=== PATIENT | male | born 1960 | race Caucasian/White ===

== ENCOUNTER 2021-02-10 04:25 | Emergency (ER) | payer SELFPAY ==
--- NOTE | ~2021-02-10 | CT_ITS ---
EXAMINATION: CT ABDOMEN AND PELVIS WITH CONTRAST CLINICAL INFORMATION: Left lower quadrant pain COMPARISON: None TECHNIQUE: Multidetector volumetric images were obtained from the superior aspect of the liver through the pubic symphysis following administration 85 mL of Omnipaque 350 intravenous contrast. Sagittal and coronal reformatted images were obtained on the technologist's workstation. Oral contrast: No This CT examination was performed using dose optimization techniques as appropriate, variously including the following: *Automated exposure control *Adjustment of mA and/or kV according to patient size (this includes techniques or standardized protocols for targeted exams where dose is matched to indication/reason for exam; i.e. extremities or head) *Use of iterative reconstruction technique DLP: 721 mGy-cm FINDINGS: LUNG BASES: The visualized lung bases are unremarkable. Coronary calcifications. LIVER, GALLBLADDER, AND BILIARY TREE: Liver normal in size, contour and morphology. There is a 4.4 cm ill-defined hypodensity within hepatic segment 7 with suggestion of discontinuous peripheral nodular enhancement matching that of blood pool, most compatible with a hemangioma. A similar-appearing smaller lesion is present within hepatic segment 6 posteriorly measuring 1.6 cm. There are 3 thinly septate cysts within the right lobe of the liver, largest measuring 2.1 cm. No intra or extrahepatic biliary dilatation. Gallbladder unremarkable. PANCREAS: Unremarkable. SPLEEN: Unremarkable. ADRENAL GLANDS: Unremarkable. KIDNEYS AND URETERS: There is mild left hydroureteronephrosis, diminished/delayed enhancement and perinephric stranding upstream from a 2 mm calculus within the distal left ureter located 3 cm proximal to the ureterovesical junction. No additional urinary calculi. Right kidney unremarkable. BLADDER: Unremarkable. GASTROINTESTINAL TRACT: Scattered left colonic diverticula. No evidence of diverticulitis. Normal appendix. Stomach and small bowel unremarkable. ABDOMINAL WALL: No significant hernia is appreciated. LYMPH NODES: Normal. VASCULAR: Unremarkable. PELVIC VISCERA: Mild prostatomegaly. Seminal vesicles unremarkable. OSSEOUS STRUCTURES: No acute or suspicious osseous abnormalities. Severe bilateral hip arthrosis with [id number] contact. Degenerative changes present throughout the spine. CT/CT abdomen pelvis w con IMPRESSION: * There is a 2 mm calculus within the distal LEFT ureter, 3 cm proximal from the ureterovesical junction associated with mild obstructive uropathy as described. * Incidental 4.4 cm lesion within hepatic segment 7 most compatible with a hemangioma. There is an additional 1.6 cm ill-defined lesion within hepatic segment 6 which is less specific due to its small size, however also likely a hemangioma. Recommend right upper quadrant ultrasound or dynamic MRI of the liver to confirm. * There are 3 thinly septate benign hepatic cysts. * Scattered left colonic diverticula without evidence of diverticulitis. * Severe bilateral hip arthrosis with [id number] contact.
[2021-02-10 04:29] VITALS: BP 145/85; PULSE 75; RESP 18; TEMP 36.7; O2SAT 100; BMI 29.8
--- NOTE | 2021-02-10 04:38 | ED_ITS ---
HPI - Abdominal Pain General Chief Complaint: Abdominal Pain Stated Complaint: ABD PAIN Time Seen by Provider: 02/10/21 04:38 Source: patient Mode of arrival: ambulatory History of Present Illness HPI narrative: This is a 60-year-old male without significant past medical history who presents with onset and worsening left-sided abdominal/flank pain. Patient states that he has had nausea and vomiting and that this all started at approximately 11:00 p.m. last night. He denies any fevers but is having chills. Otherwise, he denies any diarrhea, or urinary pain/burning/frequency. Related Data Previous Rx's Medication Instructions Recorded ondansetron HCl [Zofran] 4 mg PO Q8H PRN #7 tab 02/10/21 prednisone 20 mg PO DAILY 4 Days #4 tab 02/10/21 tamsulosin [Flomax] 0.4 mg PO BEDTIME 4 Days #4 cap 02/10/21 Allergies Allergy/AdvReac Type Severity Reaction Status Date / Time No Known Allergies Allergy Verified 02/10/21 04:33 Review of Systems Review of Systems Pertinent positives and negatives as stated in HPI 10 point review of systems is otherwise negative. Physical Exam Vital Signs: Vital Signs: Last Vital Signs Temp 98.1 F 02/10/21 04:29 Pulse 66 02/10/21 05:14 Resp 20 02/10/21 05:14 BP 146/89 H 02/10/21 05:14 Pulse Ox 96 02/10/21 05:14 Body Mass Index 29.8 VITAL SIGNS: Reviewed. GENERAL: Well developed, well nourished, in no acute distress. HEAD: Normocephalic/atraumatic, EYES: PERRLA, EOMI NOSE: Nares patent bilateral OROPHARYNX: no oral lesions noted, posterior pharynx clear NECK: Supple, no adenopathy LUNGS: Normal breath sounds. SpO2<96> CARDIOVASCULAR: Regular rate and rhythm without noted murmurs ABDOMEN: Soft, tenderness to palpation left upper quadrant/flank pain, non- distended with bowel sounds. MUSCULOSKELETAL: No tenderness, deformities, or effusions noted on gross inspection. EXTREMITIES: No cyanosis, clubbing or edema. SKIN: Inspection of the skin reveals no rashes, ulcerations, jaundice, pallor, or petechiae. NEUROLOGIC: Alert and oriented x 4. Strength and sensation to light touch were grossly intact x 4. Course Course Course Narrative: This is a 60-year-old male with history and clinical presentation suggestive possible pancreatitis, gastritis, diverticulitis. On review of all investigations patient is noted to have ureterolithiasis and was provided with Toradol as well as an initial dose of Flomax. This case was discussed with Urology who will see the patient in the office. All results and findings were discussed with the patient bedside and he was discharged in stable condition. MDM - Abdominal Pain Lab Data Result diagrams: 02/10/21 04:42 02/10/21 04:42 Labs: Lab Results 02/10/21 02/10/21 02/10/21 Range/Units 04:42 04:42 04:42 WBC 12.0 H (4.8-10.8) X10*3/uL RBC 4.55 L (4.60-5.80) X10*6/uL Hgb 14.4 (14.0-18.0) g/dl Hct 40.8 L (42-52) % MCV 89.7 (80-98) fL MCH 31.6 (27.0-33.0) pg MCHC 35.3 (31.0-36.0) g/dl RDW 11.8 (11.0-16.0) % Plt Count 230 (160-400) X10*3/uL MPV 9.1 L (9.4-12.4) fL Immature Gran % (Auto) 0.3 (0.0-0.4) % Neut % (Auto) 94.2 H (45-73) % Lymph % (Auto) 2.9 L (20-40) % Schley % (Auto) 2.3 (2-11) % Eos % (Auto) 0.0 (0-4) % Baso % (Auto) 0.3 (0-2) % Lymph # (Auto) 0.4 L (1.2-4.9) X10*3/uL Schley # (Auto) 0.3 (0.1-1.2) X10*3/uL Eos # (Auto) 0.0 (0.0-0.4) X10*3/uL Baso # (Auto) 0.0 (0.0-0.2) X10*3/uL Abs Immat Gran (auto) 0.04 H (0.00-0.03) X10*3/uL Absolute Neuts (auto) 11.3 H (2.0-8.3) X10*3/uL Absolute Nucleated RBC 0.000 (0.0-0.012) X10*3/uL Nucleated RBC % (auto) 0.0 (0.0-0.2) /100WBC Smear Tech's Comments VERIFIED Hold Blue Top SEE NOTE Sodium 141 (135-145) mmol/L Potassium 4.2 (3.3-5.1) mmol/L Chloride 106 (96-108) mmol/L Carbon Dioxide 23 (22-29) mmol/L Anion Gap 16 (12-20) BUN 21 H (9-16) mg/dL Creatinine 1.19 (0.5-1.4) mg/dL Estim Creat Clear Calc 78.7 Estimated GFR > 60 Random Glucose 137 H (60-115) mg/dL Calcium 9.6 (8.4-10.2) mg/dL Total Bilirubin 0.8 (0.0-1.0) mg/dL AST 18 (5-37) U/L ALT 17 (0-40) U/L Alkaline Phosphatase 62 (39-117) U/L Total Protein 7.7 (6.5-8.0) g/dL Albumin 4.9 (3.5-5.0) g/dL Lipase 19 (8-78) U/L Ethyl Alcohol mg/dL 02/10/21 Range/Units 04:42 WBC (4.8-10.8) X10*3/uL RBC (4.60-5.80) X10*6/uL Hgb (14.0-18.0) g/dl Hct (42-52) % MCV (80-98) fL MCH (27.0-33.0) pg MCHC (31.0-36.0) g/dl RDW (11.0-16.0) % Plt Count (160-400) X10*3/uL MPV (9.4-12.4) fL Immature Gran % (Auto) (0.0-0.4) % Neut % (Auto) (45-73) % Lymph % (Auto) (20-40) % Schley % (Auto) (2-11) % Eos % (Auto) (0-4) % Baso % (Auto) (0-2) % Lymph # (Auto) (1.2-4.9) X10*3/uL Schley # (Auto) (0.1-1.2) X10*3/uL Eos # (Auto) (0.0-0.4) X10*3/uL Baso # (Auto) (0.0-0.2) X10*3/uL Abs Immat Gran (auto) (0.00-0.03) X10*3/uL Absolute Neuts (auto) (2.0-8.3) X10*3/uL Absolute Nucleated RBC (0.0-0.012) X10*3/uL Nucleated RBC % (auto) (0.0-0.2) /100WBC Smear Tech's Comments Hold Blue Top Sodium (135-145) mmol/L Potassium (3.3-5.1) mmol/L Chloride (96-108) mmol/L Carbon Dioxide (22-29) mmol/L Anion Gap (12-20) BUN (9-16) mg/dL Creatinine (0.5-1.4) mg/dL Estim Creat Clear Calc Estimated GFR Random Glucose (60-115) mg/dL Calcium (8.4-10.2) mg/dL Total Bilirubin (0.0-1.0) mg/dL AST (5-37) U/L ALT (0-40) U/L Alkaline Phosphatase (39-117) U/L Total Protein (6.5-8.0) g/dL Albumin (3.5-5.0) g/dL Lipase (8-78) U/L Ethyl Alcohol < 10 mg/dL ECG Data Attestation: I personally reviewed and interpreted this ECG as follows: Prior ECG tracings: not available for review Interpretation: Normal sinus rhythm, HR-69, no evidence of acute ischemia, TN/QRS/QTC are within normal limits. Discharge Plan Discharge Clinical Impression: Ureterolithiasis Patient Disposition: Home, Self-Care Instructions: Ureteral Stones (ED) Additional Instructions: Follow-up with your primary care provider in the next 2-3 days for re-evaluation . Increase fluid hydration especially with water. Tylenol 1000 mg, orally, every 6 hours as needed for pain control. Do not exceed 4000 mg within 24 hours. Ibuprofen 400 mg, orally with milk or food, every 6 hours as needed for pain control. You have been provided with a referral to see Urology please call their office on Saturday morning. Prescriptions: New tamsulosin [Flomax] 0.4 mg capsule 0.4 mg PO BEDTIME 4 Days Qty: 4 RF: 0 prednisone 20 mg tablet 20 mg PO DAILY 4 Days Qty: 4 RF: 0 ondansetron HCl [Zofran] 4 mg tablet 4 mg PO Q8H PRN (Reason: nausea and vomiting) Qty: 7 RF: 0 Referrals: Quentin Olivera MD [Physician] - 2 days (Re-evaluation after patient noted to have ureterolithiasis in the emergency department .) Physician,Flavio [Primary Care Provider] - 2 days [facility] Past Medical History Source: nursing notes reviewed Surgical History H/O Achilles tendon repair Social History Social History Advance Directives: No
[2021-02-10 04:49] LABS: Basophils Percent Auto 0.3 % (0-2); Hematocrit 40.8 % (42-52); Hemoglobin 14.4 g/dl (14.0-18.0); Imm Gran Abs Auto 0.04 X10*3/uL (0.00-0.03); Imm Gran Pct Auto 0.3 % (0.0-0.4); Lymphocytes Absolute Auto 0.4 X10*3/uL (1.2-4.9); Lymphocytes Percent Auto 2.9 % (20-40); MANUAL DIFF FLAG SCAN; Mean Corpuscular HGB Conc 35.3 g/dl (31.0-36.0); Mean Corpuscular Hemoglobin 31.6 pg (27.0-33.0); Mean Corpuscular Volume 89.7 fL (80-98); Mean Platelet Volume 9.1 fL (9.4-12.4); Monocytes Absolute Auto 0.3 X10*3/uL (0.1-1.2); Monocytes Percent Auto 2.3 % (2-11); Neutrophils Absolute Auto 11.3 X10*3/uL (2.0-8.3); Neutrophils Percent Auto 94.2 % (45-73); Platelet Count 230 X10*3/uL (160-400); Red Blood Count 4.55 X10*6/uL (4.60-5.80); Red Cell Distribution Width 11.8 % (11.0-16.0); SCAN SMEAR FLAG 1
[2021-02-10] MEDS: ondansetron HCL 4 MG/2 ML VIAL IVPUSH (05:05)
[2021-02-10] MEDS: 0.9 % Sodium Chloride 1,000 ML 999 ML IV (05:06)
--- NOTE | 2021-02-10 05:09 | ECG_ITS ---
Test Reason : ABD PAIN Blood Pressure : / mmHG Vent. Rate : 069 BPM Atrial Rate : 069 BPM P-R Int : 162 ms QRS Dur : 078 ms QT Int : 408 ms P-R-T Axes : 042 012 027 degrees QTc Int : 437 ms Normal sinus rhythm Normal ECG No previous ECGs available Referred By: Crista Mills Electronically Signed By:EMA ALFORD
[2021-02-10 05:14] VITALS: BP 146/89; PULSE 66; RESP 20; O2SAT 96
[2021-02-10 05:20] LABS: Alanine Aminotransferase 17 U/L (0-40); Albumin Level 4.9 g/dL (3.5-5.0); Alkaline Phosphatase 62 U/L (39-117); Anion Gap 16 (12-20); Aspartate Amino Transferase 18 U/L (5-37); Bilirubin Total 0.8 mg/dL (0.0-1.0); Blood Urea Nitrogen 21 mg/dL (9-16); Calcium 9.6 mg/dL (8.4-10.2); Carbon Dioxide 23 mmol/L (22-29); Chloride 106 mmol/L (96-108); Creatinine Clr Calc Pharmacy 78.7; Estimated Glomerular Filt Rate > 60; Glucose Random 137 mg/dL (60-115); Lipase 19 U/L (8-78); Potassium 4.2 mmol/L (3.3-5.1); Sodium 141 mmol/L (135-145); Total Protein 7.7 g/dL (6.5-8.0)
[2021-02-10 05:22] LABS: SLIDE REVIEW VERIFIED
--- NOTE | 2021-02-10 05:31 | PC.NURSE ---
Patient away for imaging. Medicated as ordered for nausea/vomiting with Zofran and Normal Saline. Will continue to monitor.
[2021-02-10] MEDS: iohexoL 350 MG/ML 100 ML INFUS..BTL IV (05:43)
[2021-02-10 05:46] LABS: Ethanol < 10 mg/dL
[2021-02-10] MEDS: Tamsulosin HCL 0.4 MG CAPSULE PO (06:51)
[2021-02-10] MEDS: Ketorolac Tromethamine 15 MG/ML VIAL IVPUSH (06:51)
[2021-02-10 07:14] LABS: Glucose Urine UA NEG (NEG); Leukocyte Esterase Urine NEG (NEG); Nitrite Urine NEG (NEG); Urine Blood 1+ (NEG); Urine Ketones >=80 MG/DL (NEG); Urine Protein NEG (NEG-TRACE)
[2021-02-10 07:16] LABS: Appearance Urine CLEAR; Color Urine YELLOW
[2021-02-10 07:26] LABS: WBC Urine 0 /HPF (0-4)
[2021-02-10 07:28] VITALS: RESP 16
== END 2021-02-10 08:13 | disposition home or self-care (01) ==
PROVIDERS: Emergency Provider Student in an Organized Health Care Education/Training Program
DX: N20.2 Calculus of kidney with calculus of ureter (principal); R11.2 Nausea with vomiting, unspecified; R10.12 Left upper quadrant pain; R93.5 Abnormal findings on diagnostic imaging of other abdominal regions, including retroperitoneum; K76.9 Liver disease, unspecified
CPT/HCPCS: 36415; 74177; 80053; 80320; 81001; 83690; 85025; 93005; 96361; 96374; 96375; 99284; J1885; J2405; Q9967

== ENCOUNTER 2025-09-03 00:54 | Emergency (ER) | payer MEDICARE, SELFPAY ==
--- NOTE | ~2025-09-03 | CT_ITS ---
CLINICAL HISTORY: left flank pain CT abdomen and pelvis without contrast Comparison: None provided Findings: No consolidation or effusion. Indeterminate 4.4 x 4.1 cm mass in segment 7 of the right hepatic lobe. Unremarkable gallbladder. Unremarkable spleen, pancreas, and bilateral adrenal glands. There is an obstructing 0.3 cm stone in the proximal left ureter with resultant hydroureteronephrosis and perinephric fat stranding. An additional smaller stone is seen in the left upper pole of the kidney. A punctate nonobstructing stone is seen in the lower pole of the right kidney. No hydronephrosis or hydroureter on the right. No bowel obstruction, pneumoperitoneum, or pneumatosis. Colonic diverticulosis without evidence of diverticulitis. Normal appendix. Urinary bladder is smooth walled and contains multiple dependent stones. Prostatomegaly. Seminal vesicles are unremarkable. Severe osteoarthritis of both hips. No acute fractures or dislocations. Osteopenia. IMPRESSION: Obstructing 0.3 cm stone in the proximal left ureter with hydroureteronephrosis and perinephric fat stranding. Multiple urinary bladder stones. Indeterminate 4.4 cm mass in segment 7 of the right hepatic lobe. Advise nonemergent multiphase CT of the abdomen and pelvis or MRI of the abdomen with and without contrast provided no contraindications. This document has been electronically signed by: Oliver Horna MD on 09/03/2025 03:11:31
[2025-09-03 01:01] VITALS: BP 164/86; PULSE 68; RESP 16; TEMP 36.5; O2SAT 100; BMI 26.7
--- NOTE | 2025-09-03 01:06 | ED_ITS ---
HPI - Male Genitourinary General Chief complaint: Urogenital-Male Stated complaint: kidney stones Time Seen by Provider: 09/03/25 01:06 Source: patient, RN notes reviewed and old records reviewed Mode of arrival: ambulatory Limitations: no limitations History of Present Illness ED Provider: Kameron CARPENTER Narrative: 65-year-old male presents for evaluation of left flank pain. He reports that his pain started about 12-14 hours ago, in the late morning. He had a sudden onset of left flank pain. He has associated nausea and vomiting pain His pain worsened a few hours ago Has a history kidney stone about 4 years ago and reports that this feels very similar pain Denies any fevers, chills pain Denies any difficulty urinating Related Data Previous Rx's ?Medication ?Instructions ?Recorded ondansetron HCl 4 mg tablet 4 mg PO Q8H PRN nausea and 02/10/21 (Zofran) vomiting #7 tabs prednisone 20 mg tablet 20 mg PO DAILY 4 days #4 tab s 02/10/21 tamsulosin 0.4 mg capsule (Flomax) 0.4 mg PO BEDTIME 4 days #4 caps 02/10/21 ibuprofen 600 mg tablet 600 mg PO Q6H PRN pain #20 t abs 09/03/25 ondansetron 4 mg disintegrating 4 mg PO Q8H PRN nausea and 09/03/25 tablet vomiting #15 tabs oxycodone 5 mg tablet 5 mg PO Q6H PRN pain #20 tab s 09/03/25 phenazopyridine 200 mg tablet 200 mg PO TID PRN pain 3 days #10 09/03/25 tabs tamsulosin 0.4 mg capsule (Flomax) 0.4 mg PO DAILY #7 caps 09/03/25 Allergies Allergy/AdvReac Type Severity Reaction Status Date / Time No Known Allergies Allergy Verified 09/03/25 01:04 Review of Systems 2 Constitutional: Constitutional: Denies body ache(s), Denies chills, Denies fever(s) and Denies headache(s) Eyes: Eyes: Denies blurry vision ENT: Denies vertigo, Denies dizziness and Denies headache(s) Cardiovascular: Cardiovascular: Denies chest pain and Denies dyspnea on exertion Respiratory: Respiratory: Denies cough and Denies dyspnea on exertion Gastrointestinal: Gastrointestinal: Reports abdominal pain, Reports nausea and Reports vomiting Genitourinary: Genitourinary: Denies dysuria and Reports flank pain Musculoskeletal: Musculoskeletal: Reports back pain Integumentary/Breasts: Skin/Breast: Denies rash Neurologic: Denies vertigo, Denies dizziness and Denies headache(s) REPLACED BY [facility] Past Medical History Surgical History H/O Achilles tendon repair Social History Social History Smoked in Last 30 Days: No Use of substances other than those prescribed or required for medical reasons: Yes Substance Use Type: Marijuana Advance Directives: No Advance Directives Information Provided: Yes Do you have a plan to hurt others: No Plan Physical Exam 2 Vital Signs: Vital Signs: Last Vital Signs Temp 97.7 F 09/03/25 01:01 Pulse 60 09/03/25 02:15 Resp 20 09/03/25 03:59 BP 166/90 H 09/03/25 02:15 Pulse Ox 98 09/03/25 02:15 O2 Del Method Room Air 09/03/25 02:15 BMI result Body Mass Index 26.7 Const: Other: The patient appears quite uncomfortable but is nontoxic appearing General: healthy appearing, alert, awake and diaphoretic Nutritional Appearance: well nourished Orientation/consciousness: patient oriented x3 HEENT: Head: Yes normocephalic and Yes atraumatic Eyes: Eyelids: Yes eyelids normal Conjunctivae: conjunctivae normal S clerae: sclerae normal Corneas: corneas normal Pupils: Equal, round and reactive pupils present EOM: EOMs intact bilaterally Neck: Neck: Yes full ROM Resp: Effort & Inspection: normal respiratory effort, able to speak in complete sentences and not labored Cardio: Rate: regular rate Rhythm: regular rhythm GI: Inspection: No distended Palpation (GI): Soft to palpation, not firm, no guarding and not rigid Skin: General skin exam: no rashes or lesions noted and elasticity normal Neuro: General: patient oriented x3 Cranial nerves: Yes Equal, round and reactive pupils present and Yes Bilaterally intact EOM present Cognition (Neuro): normal cognition Course Reevaluation(s) Reevaluation #1: Fahad London PA-C have accepted care of the patient and signed out pending imaging and final disposition CT abdomen and pelvis:MPRESSION: Obstructing 0.3 cm stone in the proximal left ureter with hydroureteronephrosis and perinephric fat stranding. Multiple urinary bladder stones. Indeterminate 4.4 cm mass in segment 7 of the right hepatic lobe. Advise nonemergent multiphase CT of the abdomen and pelvis or MRI of the abdomen with and without contrast provided no contraindications. The hepatic lesion is old it has been present since 2020 no change, I will be sure to make the patient aware, he has aware Urine resulting, passing hematuria, it is not infected, I am calling back Radiology to see if they can give measurements in regard to the multiple bladder stones. The patient may require admission. Dependent upon the size of the stones. He may not be able to pass them. Consultations Consultation #1: per real radiology...... Oliver Horan MD..... The stones or fragments when compared to the obstructing stone in the proximal ureter, they likely are kidney stone in origin, clearly they will pass. Time: 04:45 Medications Administered Discontinued Medications Generic Name Dose Route Start Last Admin Trade Name Freq PRN Reason Stop Dose Admin Sodium Chloride 1,000 mls @ 999 mls/hr 09/03/25 01:15 09/03/25 02:15 Ns IV 09/03/25 02:15 Infused .Q1H1M LEONEL Infusion Ketorolac Tromethamine 30 mg 09/03/25 01:14 09/03/25 01:23 Ketorolac Tromethamine 30 Mg/Ml Vial IVPUSH 09/03/25 01:15 30 mg ONCE ONE Administration Morphine Sulfate 4 mg 09/03/25 01:56 09/03/25 02:00 Morphine Sulfate 4 Mg/Ml Cartridge IVPUSH 09/03/25 01:57 4 mg ONCE ONE Administration Protocol Morphine Sulfate 4 mg 09/03/25 03:54 09/03/25 03:59 Morphine Sulfate 4 Mg/Ml Cartridge IVPUSH 09/03/25 03:55 4 mg ONCE ONE Administration Protocol Ondansetron HCl 4 mg 09/03/25 01:08 09/03/25 01:14 Ondansetron Hcl 4 Mg/2 Ml Vial IVPUSH 09/03/25 01:09 4 mg ONCE ONE Administration Ondansetron HCl 4 mg 09/03/25 03:54 09/03/25 03:59 Ondansetron Hcl 4 Mg/2 Ml Vial IVPUSH 09/03/25 03:55 4 mg ONCE ONE Administration Tamsulosin HCl 0.4 mg 09/03/25 01:08 09/03/25 04:29 Tamsulosin Hcl 0.4 Mg Capsule PO 09/03/25 01:09 0.4 mg ONCE ONE Administration Medical Decision Making Medical Decision Making [facility] Narrative: 65-year-old male presents for evaluation of a sudden onset of left flank pain. His pain is colicky in nature in the left flank radiating to his left lower abdomen. He has a history kidney stones and his presentation is concerning for acute obstructive uropathy. He appears uncomfortable but nontoxic. He is afebrile. Plan for basic labs, urinalysis in his dry CT scan of the pelvis to evaluate for obstructive uropathy. He was medicated with IV fluids, Zofran, Toradol Differential Diagnosis Differential Diagnoses: The differential diagnosis associated with the presentation includes Obstructive uropathy Muscle strain Pyelonephritis UTI Constipation Lab Data 09/03/25 02:10 09/03/25 02:10 Labs: Lab Results 09/03/25 09/03/25 Range/Units 02:10 03:48 WBC 10.2 (4.8-10.8) X10*3/uL RBC 4.20 L (4.60-5.80) X10*6/uL Hgb 12.9 L (14.0-18.0) g/dl Hct 37.2 L (42.0-52.0) % MCV 88.6 (80.0-98.0) fL MCH 30.7 (27.0-33.0) pg MCHC 34.7 (31.0-36.0) g/dl RDW 12.2 (11.0-16.0) % Plt Count 188 (160-400) X10*3/uL MPV 9.1 L (9.4-12.4) fL Immature Gran % (Auto) 0.3 (0.0-0.4) % Neut % (Auto) 87.9 H (45-73) % Lymph % (Auto) 6.6 L (20-40) % Nuckolls % (Auto) 4.6 (2-11) % Eos % (Auto) 0.1 (0-4) % Baso % (Auto) 0.5 (0-2) % Lymph # (Auto) 0.7 L (1.2-4.9) X10*3/uL [place]uckolls # (Auto) 0.5 (0.1-1.2) X10*3/uL Eos # (Auto) 0.0 (0.0-0.4) X10*3/uL Baso # (Auto) 0.1 (0.0-0.2) X10*3/uL Abs Immat Gran (auto) 0.03 (0.00-0.03) X10*3/uL Absolute Neuts (auto) 8.9 H (2.0-8.3) x10*3/uL Absolute Nucleated RBC 0.000 (0.0-0.012) X10*3/uL Nucleated RBC % (auto) 0.0 (0.0-0.2) /100WBC Sodium 142 (135-145) mmol/L Potassium 3.4 (3.3-5.1) mmol/L Chloride 109 H (96-108) mmol/L Carbon Dioxide 21 L (22-29) mmol/L Anion Gap 15 (12-20) BUN 16 (9-16) mg/dL Creatinine 0.77 (0.5-1.4) mg/dL Estim Creat Clear Calc 102.1 Estimated GFR > 60 Random Glucose 140 H (60-115) mg/dL Calcium 8.7 D (8.4-10.2) mg/dL Urine Color Straw Urine Appearance Cloudy Urine pH 7.0 (5.0-9.0) Ur Specific [place] 1.020 (1.005-1.025) Urine Protein 30 (1+) H (Neg-Trace) mg/dL Urine Glucose (UA) 100 H (Negative) mg/dL Urine Ketones 40 (Negative) mg/dL Urine Blood Large (3+) H (Negative) Urine Nitrite Negative (Negative) Ur Leukocyte Esterase Trace H (Negative) Urine RBC >20 H (0-2) /HPF Urine WBC 0-5 (0-5) /HPF Ur Squamous Epith Cells 0-2 (0-2) /HPF Urine Bacteria None Seen (None Seen) Hyaline Casts 0-2 (0-2) /LPF Discharge Plan Discharge Clinical Impression: Calculus of proximal left ureter, Bladder stones Patient Disposition: Home, Self-Care Instructions: Renal Colic (ED), How to Strain Your Urine (ED), Bladder Stones (ED) Additional Instructions: You are passing multiple stones, there are several fragments in the bladder, you have 1 stone that measures 0.3 cm that has in the ureter on the left. See home care instructions. Be sure to consume adequate volumes of water, 96 oz a day. Uses Zofran as needed for nausea. Take the ibuprofen , this is an anti- inflammatory, take it with food, for pain. Take the Pyridium, this is specific for bladder spasm, it will cause your urine to become fluorescent orange, it will resolve. Use the oxycodone as needed for further pain, this medication may be constipating, take [id number] Colace, this is a stool softener, to prevent constipation. Lastly, take the Flomax as directed for a week, this will help to induce urine flow to help you passed the stones. I am providing you with a contact for Urology, call to schedule an appointment. Prescriptions: New tamsulosin [Flomax] 0.4 mg capsule 0.4 mg PO DAILY Qty: 7 0RF ondansetron 4 mg tablet,disintegrating 4 mg PO Q8H PRN (Reason: nausea and vomiting) Qty: 15 0RF ibuprofen 600 mg tablet 600 mg PO Q6H PRN (Reason: pain) Qty: 20 0RF oxycodone 5 mg tablet 5 mg PO Q6H PRN (Reason: pain) Qty: 20 0RF Rx Instructions: Partial Fill upon patient request. phenazopyridine 200 mg tablet 200 mg PO TID PRN (Reason: pain) 3 Days Qty: 10 0RF No Action tamsulosin [Flomax] 0.4 mg capsule 0.4 mg PO BEDTIME 4 Days Qty: 4 0RF prednisone 20 mg tablet 20 mg PO DAILY 4 Days Qty: 4 0RF ondansetron HCl [Zofran] 4 mg tablet 4 mg PO Q8H PRN (Reason: nausea and vomiting) Qty: 7 0RF Referrals: Alex Holman MD [Physician, Urology] Referral Note: renal colic, multiple stones, bladder stones Print Language: Occitan
--- OUTSIDE RECORDS SUMMARY | 2025-09-03 01:55 | XMS_ITS ---
Author Name [facility] Organization Unknown Care Team Organization Name Specialty Phone Email Start Date End Da te [facility] Termed, PROVIDER Primary Care 09/03/202306/04
[2025-09-03 02:00] VITALS: RESP 20
[2025-09-03 02:15] VITALS: BP 166/90; PULSE 60; RESP 18; O2SAT 98
[2025-09-03 02:29] LABS: Hematocrit 37.2 % (42.0-52.0); Hemoglobin 12.9 g/dl (14.0-18.0); Imm Gran Abs Auto 0.03 X10*3/uL (0.00-0.03); Imm Gran Pct Auto 0.3 % (0.0-0.4); Lymphocytes Absolute Auto 0.7 X10*3/uL (1.2-4.9); MANUAL DIFF FLAG NO; Mean Corpuscular HGB Conc 34.7 g/dl (31.0-36.0); Mean Corpuscular Hemoglobin 30.7 pg (27.0-33.0); Mean Corpuscular Volume 88.6 fL (80.0-98.0); NRBC Abs Auto 0.000 X10*3/uL (0.0-0.012); NRBC Pct Auto 0.0 /100WBC (0.0-0.2); Platelet Count 188 X10*3/uL (160-400); Red Blood Count 4.20 X10*6/uL (4.60-5.80); White Blood Count 10.2 X10*3/uL (4.8-10.8)
[2025-09-03 02:40] LABS: Anion Gap 15 (12-20); Blood Urea Nitrogen 16 mg/dL (9-16); Calcium 8.7 mg/dL (8.4-10.2); Carbon Dioxide 21 mmol/L (22-29); Chloride 109 mmol/L (96-108); Creatinine Clr Calc Pharmacy 102.1; Estimated Glomerular Filt Rate > 60; Potassium 3.4 mmol/L (3.3-5.1); Sodium 142 mmol/L (135-145)
--- NOTE | 2025-09-03 03:54 | PC.NURSE ---
pt was too nauseous and actively throwing up to take the tamsulosin that was ordered. Pt also refused to take anything orally due to him throwing up/nausea. CRISTHIAN Park informed RN to give to pt after he is medicated for pain and nausea.
[2025-09-03 03:57] LABS: Appearance Urine Cloudy; Glucose Urine UA 100 mg/dL (Negative); PH 7.0 (5.0-9.0); Specific Gravity - Urine 1.020 (1.005-1.025); UMIC TRIGGER UACC YES
[2025-09-03 03:59] VITALS: RESP 20
[2025-09-03 05:34] VITALS: BP 147/81; PULSE 73; RESP 16; TEMP 36.8; O2SAT 97
[2025-09-03 05:46] VITALS: BP 147/81; PULSE 73; RESP 16; TEMP 36.8; O2SAT 97
== END 2025-09-03 06:06 | disposition home or self-care (01) ==
PROVIDERS: Physician Assistant; Emergency Provider Student in an Organized Health Care Education/Training Program
DX: N20.1 Calculus of ureter (principal); N21.0 Calculus in bladder; R10.A0 Flank pain, unspecified side; R11.2 Nausea with vomiting, unspecified
CPT/HCPCS: 36415; 74176; 80048; 81001; 85025; 96361; 96374; 96375; 96376; 99284; J1885; J2270; J2405

== ENCOUNTER → 2025-09-03 01:15 | Outpatient (BNV) | payer OTHER, MEDICARE, SELFPAY | PROVIDERS: Emergency Provider Student in an Organized Health Care Education/Training Program; Visit Provider Student in an Organized Health Care Education/Training Program | DX: N13.2 Hydronephrosis with renal and ureteral calculous obstruction (principal); N21.0 Calculus in bladder; R16.0 Hepatomegaly, not elsewhere classified | CPT/HCPCS: 74176 ==

== ENCOUNTER 2025-10-07 12:05 | Outpatient (AMB) | payer MEDICARE, SELFPAY ==
--- NOTE | 2025-10-07 12:42 | A.OFFVIS_ITS ---
Intake Visit Reasons: kidney stones SET UA Intake Note: New Patient is present for Kidney Stones Urology Rx:none Blood Thinners: none NKDA Imaging completed: Abd/Pelvis CT 09/03/25 Smoker : yes Hand Clipper Required: No Accompanied by: Self / Same As Patient Allergies No Known Allergies Allergy (Verified 10/07/25 12:44) HPI Comments Details: Ortiz is a pleasant male. He has no primary care. He is seen for the following urologic conditions - nephrolithiasis - prostatomegaly - liver lesion Recent stone passage after emergency room visit No prior stones CT shows left proximal ureteric stone, stones within bladder with prostatomegaly. In addition has liver lesion Does not currently have PCP Plan for liver imaging Check PSA Start dutasteride for prostatomegaly and incomplete bladder emptying Nephrolithiasis Reason presentation to emergency room CT - obstructing 0.3 cm stone in the proximal left ureter with resultant hydroureteronephrosis and perinephric fat stranding. An additional smaller stone is seen in the left upper pole of the kidney PFSH Surgical History H/O Achilles tendon repair Social History Substance Use Type: Marijuana Review of Systems Const Denies chills and Denies fever(s) Card Reports no additional complaints and Denies syncope Resp Denies cough GI Denies abdominal pain and Denies heartburn Reports as per HPI and Denies change in libido Neuro Denies syncope Psych Denies change in libido Endo Denies change in libido Physical Exam Const General: cooperative, healthy appearing, comfortable and no acute distress Orientation/consciousness: patient oriented x3 HEENT Face and sinus: Yes normal facial exam Mouth: moist mucous membranes Neck Neck: Yes normal visual inspection, Yes full ROM and Yes trachea midline Chest Chest palpation & inspection: normal inspection of the chest Resp Effort & Inspection: normal respiratory effort, able to speak in complete sentences and no respiratory distress GI Inspection: Yes normal to inspection Back/Spine/Pelvis Cervical Spine: normal cervical lordosis Thoracic/Lumbar Spine: thoracic and lumbar spine normal to inspection Skin General skin exam: no rashes or lesions noted Neuro General: patient oriented x3, gait normal, tone normal and moves all extremities Extrem General: Yes normal to inspection and Yes capillary refill normal Results AMB Urinalysis, Automated UA Leukoctes 0 Alec/uL Last Edit by Nicole Colon, [facility] on 10/07/25 13:04 UA Nitrite Negative Last Edit by Nicole Colon, [facility] on 10/07/25 13:04 UA Urobilinogen 0.2 mg/dL Last Edit by Nicole Colon, [facility] on 10/07/25 13:04 UA Protein 15 mg/dL Last Edit by Nicole Colon, [facility] on 10/07/25 13:04 UA pH 6.0 Last Edit by Nicole Colon, [facility] on 10/07/25 13:04 UA Blood 10 Urban/uL Last Edit by Nicole Colon, [facility] on 10/07/25 13:04 UA Specific [place] 1.030 Last Edit by Nicole Colon, [facility] on 10/07/25 13:0 4 UA Ketone Negative Last Edit by Nicole Colon, [facility] on 10/07/25 13:04 UA Bilirubin 0 mg/dL Last Edit by Nicole Dundalk, [facility] on 10/07/25 13:04 UA Glucose 0 mg/dL Last Edit by Nicole Dund[place], [facility] on 10/07/25 13:04 Results Reviewed Results Reviewed: Laboratory Last Values Urine pH (Auto) 6.0 10/07/25 13:04 Specific [place] (Auto) 1.030 10/07/25 13:04 Urine Protein (Auto) 15 mg/dL 10/07/25 13:04 Glucose (UA)(Auto) 0 mg/dL 10/07/25 13:04 Urine Ketones (Auto) Negative 10/07/25 13:04 Urine Blood (Auto) 10 [place]/uL 10/07/25 13:04 Urine Nitrite (Auto) Negative 10/07/25 13:04 Urine Bilirubin (Auto) 0 mg/dL 10/07/25 13:04 Urine Urobilinogen (Auto) 0.2 mg/dL 10/07/25 13:04 Leukocyte Esterase (Auto) 0 Alec/uL 10/07/25 13:04 Assessment & Plan Assessment & Plan (1) Calcium kidney stones: Code(s): N20.0 - Calculus of kidney Category: Medical (2) BPH w urinary obs/LUTS: Code(s): N40.1 - Benign prostatic hyperplasia with lower urinary tract symptoms; N13.8 - Other obstructive and reflux uropathy Category: Medical (3) Liver lesion: Code(s): K76.9 - Liver disease, unspecified Category: Medical Plan Two month follow-up imaging Office Start dutasteride for enlarged prostate Orders: Orders PSA,Total (Free>4and<10) 2 Months N13.8 - Other obstructive and reflux uropathy, N40.1 - Benign prostatic hyperplasia with lower urinary tract symptoms AMB Urinalysis Automated Today N13.8 - Other obstructive and reflux uropathy, N40.1 - Benign prostatic hyperplasia with lower urinary tract symptoms CT abdomen pelvis wo/w IV con 2 Months K76.9 - Liver disease, unspecified Medications: New dutasteride 0.5 mg PO DAILY 90 caps 1RF 90 days N13.8 - Other obstructive and reflux uropathy, N40.1 - Benign prostatic hyperplasia with lower urinary tract symptoms Discontinued tamsulosin (Flomax) Discontinued Reason: Patient Completed Course 0.4 mg PO BEDTIME 4 days 4 caps 0RF Patient Instructions: This note is constructed using voice recognition software. While every effort has been made to ensure accuracy masonry instructor errors may have been included. Imaging studies, laboratory and physical exam results were discussed and reviewed in detail. No major barriers to patient understanding were identified. An opportunity to ask questions regarding the treatment plan was provided. All questions were answered. The patient expressed understanding and agreement with the above treatment plan. The patient is aware they should contact our office by phone for worsening of their current condition or the appearance of new urologic symptoms. Compliance is encouraged with any medications and followup testing that is ordered. It is a privilege to participate in the urologic care of your patient. If you have any questions or concerns regarding treatment for the above conditions, or other urologic issues, please do not hesitate to contact me. The office telephone contact is [phone]. Sincerely, Dr Quentin Olivera MD, [facility] - Urology Compassionate Specialist Care for the Genitourinary System Coding Level of Care Code New Pt Level 4 (44780) Diagnoses Calcium kidney stones N20.0 BPH w urinary obs/LUTS N40.1; N13.8 Liver lesion K76.9
== END 2025-10-07 14:01 | disposition home or self-care (01) ==
LOC: HO.HUSH 12:06
PROVIDERS: Visit Provider Urology
DX: N20.0 Calculus of kidney (principal); N40.1 Benign prostatic hyperplasia with lower urinary tract symptoms; N13.8 Other obstructive and reflux uropathy; K76.9 Liver disease, unspecified
CPT/HCPCS: 99204

== ENCOUNTER → 2025-10-07 12:05 | Outpatient (BNVA) | payer MEDICARE, SELFPAY | PROVIDERS: Visit Provider Urology | DX: N20.0 Calculus of kidney (principal); N40.1 Benign prostatic hyperplasia with lower urinary tract symptoms; N13.8 Other obstructive and reflux uropathy; K76.9 Liver disease, unspecified | CPT/HCPCS: 81003; 99202 ==